=== PATIENT | male | born 1940 | race Caucasian/White ===

== ENCOUNTER 2016-08-20 20:25 | Inpatient (IN) | payer OTHER, SELFPAY ==
--- NOTE | ~2016-08-20 | DS ---
Discharge Summary [address] [id number] [place]. [address] NAME: MARISELA TATE SR : 42 STATUS : DIS IN PAT#: [id number] AGE: 76 ADM/REG DATE : 08/20/16 MR#: [id number] REPORT SERV DATE: 09/05/16 DICTATED BY: STANLEY MOORE DATE: 09/04/16 REPORT STATUS : Draft TRANSCRIBED BY: RYANNE DATE: 09/04/16 ADMISSION DATE: 08/20/2016 DISCHARGE DATE: 09/04/2016 FINAL DIAGNOSES: 1. Lumbar seroma. 2. Functional paraplegia. 3. Diabetes with peripheral neuropathy. 4. Hypertension. 5. Sacral decubitus ulcer, stage IV. 6. Chronic kidney disease, 3. 7. Dementia. 8. Morbid obesity. 9. Obstructive sleep apnea. HOSPITAL COURSE: Please refer to the H and P done by Dr. Porras, dated 08/21/2016 and the interim discharge summary done by Dr. Montaño on 09/02/2016. Since I took care of this patient, the patient's mental status is improving with increased dose of the Seroquel. The patient has become more cooperative and has not been combative. I discussed the case with , and she is happy with the patient's behavioral improvement. Meanwhile, the [facility] is [facility]. The agreed for the patient's transfer, so we will be transferring the patient there with the above diagnoses. The patient will be on the following medications: Norvasc 5 mg a day, folic acid 1 mg a day, hydrochlorothiazide 25 mg a day, Levemir 40 units at bedtime, subcu insulin protocol at level 2, Cozaar 100 mg twice a day, multivitamin once a day, Lopressor 12.5 mg twice a day, Nystatin powder to groin area, Seroquel 75 mg twice a day, Florastor 1 capsule twice a day, pravastatin 80 mg at bedtime, fatty acid 600 mg at bedtime, multivitamin once a day, aspirin 325 mg a day, Caltrate 600 mg a day, vitamin E 400 units a day, vitamin C 500 mg a day, and vitamin D 2000 units a day. The patient will follow up with the [facility] doctor. They would also manage the wound VAC. Follow up with Dr. Shaggy Dejesus after [facility] discharge. Followup with [facility], Dr. Corrales as scheduled. This has been explained to the patient in front of the , and they agreed and understood the plan. JIM/RYANNE Stanley Moore M.D. / [id number] CC: Discharge Summary [address] [address] NAME: MARISELA TATE SR : 42 STATUS : DIS IN PAT#: [id number] AGE: 76 ADM/REG DATE : 08/20/16 MR#: [id number] REPORT SERV DATE: 09/05/16 DICTATED BY: STANLEY MOORE DATE: 09/04/16 REPORT STATUS : Draft TRANSCRIBED BY: RYANNE DATE: 09/04/16 Lizbet Hernandez M.D.
--- NOTE | ~2016-08-20 | HP ---
History And Physical [address] [address] [facility] [place]. [address] NAME: MARISELA TATE SR : 42 STATUS : ADM IN [facility]#: [id number] AGE: 76 ADM/REG DATE : 08/20/16 MR#: [id number] REPORT SERV DATE: 08/21/16 DICTATED BY: JEYSON MONROE DATE: 08/20/16 REPORT STATUS : Draft TRANSCRIBED BY: RYANNE DATE: 08/20/16 DATE OF ADMISSION: 08/20/2016 REASON FOR TRANSFER: To be seen by Dr. Corrales for possible lumbar seroma versus abscess. HISTORY OF PRESENT ILLNESS: This is a 76 years old male with an extensive medical history, for which the patient is now status post L2 through S1 laminectomy and bilateral foraminotomies with decompression on 04/10/[address] Corrales from which, during that hospital course, the patient had some postop encephalopathy and later required discharge to rehab facility. He was readmitted to [facility], 06/05/2016, for altered mental status and fever, also treated for decubitus ulcer and found to have urinary tract infection and discharged again by different provider at the [facility] with continued wound care and treatment. The patient continued to have debility at that time; however, the patient was readmitted to [facility] on 08/06/2016, for which, at that time, the patient was treated for stage IV sacral decubitus ulcer by General Surgery and required a lap sigmoid colostomy with debridement of his decubitus ulcer and also required a revision of his diverting colostomy on 08/08/2016 at [facility], and was later [facility]. The patient, although remained at the facility for about 24 hours and was readmitted again back to [facility] for encephalopathy on 08/17/2016, admitted to the Hospitalist Service while at [facility], admitted by Dr. Sagastume at [facility] and treated for suspected urinary tract infection and toxic metabolic encephalopathy. During that admission, the patient had a CT of the brain without contrast that was reported to nondiagnostic. However, the patient did have an MRI of the lumbar spine with and without contrast with findings of some postop changes of laminectomy extending from L2 through L5 to S1, as well as a rim-enhancing complex fluid collection extending throughout the length of the laminectomy bed with consideration of seroma versus hematoma versus possible could not rule out abscess. According to the hospitalist, Dr. Spear, at [facility], he reported that Neurosurgery was consulted at [facility] and they recommended for the patient to be transferred back to [facility] to be seen by Dr. Corrales, who performed his initial surgery. Dr. Spear spoke to Dr. Corrales, who agreed to see the patient once the patient returned to [facility], but recommended for the patient to be admitted to the Hospitalist Service. According to the [facility] physician, Dr. Spear, the patient's encephalopathy has had improvement. However, the patient continued to have lower extremity weakness, noted to be approximately 2 or 3 out of 5 power. The patient now has been transferred back to [facility], continues to have a wound VAC for stage IV decubitus ulcer as well as PEG tube and colostomy. The patient has a complaint of some pain in his foot, but otherwise appears to be comfortable. He follows commands. Limited medical records were sent from [facility] with transfer, but apparently, the patient was on IV Rocephin per Dr. Spear at [facility]. REVIEW OF SYSTEMS: Please refer to HPI. PAST MEDICAL HISTORY: Type 2 diabetes, hypertension, peripheral neuropathy, hyperlipidemia, depression, stage 3 CKD, osteoarthritis, lumbar radiculopathy, obstructive sleep apnea, stage 4 decubitus ulcer, urinary tract infection, and metabolic encephalopathy. History And Physical [address] [address] NAME: MARISELA TATEN : 42 STATUS : ADM IN [facility]#: [id number] AGE: 76 ADM/REG DATE : 08/20/16 MR#: [id number] REPORT SERV DATE: 08/21/16 DICTATED BY: JEYSON MONROE DATE: 08/20/16 REPORT STATUS : Draft TRANSCRIBED BY: RYANNE DATE: 08/20/16 PAST SURGICAL HISTORY: L2 through S1 open laminectomy with bilateral foraminotomy with decompression on 04/10/[address] Corrales, ORIF of the right hand, PEG tube placement, diverting colostomy at [facility] with I and D of stage 4 decubitus ulcer. SOCIAL HISTORY: Quit tobacco abuse. No alcohol. No illicit drugs. FAMILY HISTORY: Unknown due to the patient's current status. ALLERGIES: SEROQUEL. HOME MEDICATIONS: No reported medications from [facility] sent with transfer. We will send for further records. However, the patient's home medications from and at [facility] on 08/17/2016 reviewed as well as the patient's discharge from 06/10/2016 from [facility] reviewed. Pharmacy to clarify. PHYSICAL EXAMINATION: VITAL SIGNS: Temp of 98.8, blood pressure 128/64 with a pulse of 74, respirations of 18, and saturating 95% on room air. GENERAL: The patient is alert and oriented x2, currently in no distress. Calm. Follows commands. HEENT: Pupils equal, round, and reactive to light. Extraocular muscles are intact. Anicteric sclerae. CARDIOVASCULAR: S1, S2. Regular rate and rhythm. No murmurs, rubs, or gallops. No JVD. RESPIRATORY: Clear to auscultation bilaterally. No wheezes or crackles. No signs of tachypnea. ABDOMEN: Positive bowel sounds. Soft, nontender with colostomy and PEG tube in place clean. EXTREMITIES: Bilateral 1+ edema. Warm. Some footdrop of the left foot. NEURO: 4/5 bilateral upper extremity strength and 3/5 of the right lower extremity and 2/5 of the left lower extremity. Cranial nerves 2 through 12 grossly intact. Wound VAC in place to stage 4 sacral decubitus. LABORATORY DATA: Currently pending. ASSESSMENT AND PLAN: 1. Lumbar seroma versus abscess. 2. Encephalopathy. 3. Functional paraplegia. 4. Stage IV sacral decubitus with wound VAC. 5. Type 2 diabetes. 6. Hypertension. We will await further recommendations and evaluation per Dr. Corrales. The patient was transferred to be seen by Dr. Corrales, his differential specialist. We will order for [facility] to push the patient's MRI images into PACS system to be reviewed by radiologist here at [facility]. Also, we will continue with some broad-spectrum antibiotics for now and also, we will consult General Surgery and Wound Care for his stage 4 decubitus ulcer management and also we will consult Nutrition. Apparently, the patient was on an ADA diet and also receiving tube feeds while at [facility]. Also, we will consult Physical Therapy and continue neuro History And Physical [address] [place]. [address] NAME: MARISELA TATE SR : 42 STATUS : ADM IN PAT#: [id number] AGE: 76 ADM/REG DATE : 08/20/16 MR#: [id number] REPORT SERV DATE: 08/21/16 DICTATED BY: JEYSON MONROE DATE: 08/20/16 REPORT STATUS : Draft TRANSCRIBED BY: RYANNE DATE: 08/20/16 checks every four hours. The patient will be admitted to Dr. Falk. Nurses/staff attempting to contact . Currently, no answer. Nurse left call-back number. [facility]/RYANNE Jeyson Monroe M.D. / [id number] CC: MD Shaggy Perez M.D.
--- NOTE | ~2016-08-20 | CN ---
Consultation Report [facility] [address] [place]. [address] NAME: MARISELA TATE SR : 42 STATUS : ADM IN [facility]#: [id number] AGE: 76 ADM/REG DATE : 08/20/16 MR#: [id number] REPORT SERV DATE: 08/22/16 DICTATED BY: BASHIR CORRALES DATE: 08/21/16 REPORT STATUS : Draft TRANSCRIBED BY: MODFina DATE: 08/21/16 INPATIENT CONSULTATION DATE OF CONSULTATION: 08/21/2016 REASON FOR CONSULTATION: Lumbar seroma, possible abscess. HISTORY OF PRESENT ILLNESS: The patient is a pleasant 76-year-old, that I saw and examined with his in the hospital room. He is status post L2-S1 surgery by me on 04/10/2016. He was initially doing well. He was seen in the office doing well until he had a fall at [facility], and since that time, he seems to have deteriorated significantly and had mental status change, decubitus ulcer, and sigmoid colostomy with debridement of the ulcer that was performed on 08/08/2016. I was contacted yesterday by the Hospitalist at [facility] and informed that the MRI of the spine had been done, and there was a fluid collection from L2 down to S1. At this point, there were no signs of spinal infection; however, given the previous surgery, it was recommended that he would be transferred to [facility] for ongoing management. He was transferred to the Hospitalist Service, and I have been consulted regarding this fluid collection. PHYSICAL EXAMINATION: GENERAL: The patient is showing signs of dementia, is unable to answer all questions well. He does have significant confusion. He is able to participate in the exam. SPINE: I did evaluate his previous surgical site that is well-healed. There were no signs of infection. There is a large stage IV decubitus ulcer caudal to the incision, but the incision itself remains intact with no erythema, fluctuance, or drainage. NEUROLOGIC: The patient is able to grossly move all extremities. He does have some significant weakness, but no areas of focal weakness. It seems to be diffuse throughout the lower extremities bilaterally. IMAGING: I have reviewed the MRI scan, and I agree that there is a fluid collection there. It is not possible to definitively say if it is a postoperative seroma, which is certainly a possibility versus infection. Given the benign looking nature of his incision, I am not inclined to recommend any additional surgery, especially since the said that with previous surgery and general anesthesia, significantly increased the severity of his dementia. As a result, I have consulted interventional Radiology for image-guided drainage of the lumbar fluid collection and to send that for culture analysis. As long as that comes back with no signs of infection or bacteria growth, then I would certainly try to avoid any additional surgery. [facility]/RYANNE Bashir Corrales, DO Consultation Report [address] [address] NAME: MARISELA TATE : 42 STATUS : ADM IN PAT#: [id number] AGE: 76 ADM/REG DATE : 08/20/16 MR#: [id number] REPORT SERV DATE: 08/22/16 DICTATED BY: BASHIR CORRALES DATE: 08/21/16 REPORT STATUS : Draft TRANSCRIBED BY: RYANNE DATE: 08/21/16 / [id number] CC: MD Shaggy Perez M.D.
--- NOTE | ~2016-08-20 | IDS ---
Interim Discharge Summary [facility] [address] [place]. [address] NAME: MARISELA TATE : 42 STATUS : ADM IN [facility]#: [id number] AGE: 76 ADM/REG DATE : 08/20/16 MR#: [id number] REPORT SERV DATE: 09/02/16 DICTATED BY: SAURABH PARDO DATE: 09/01/16 REPORT STATUS : Draft TRANSCRIBED BY: MODFina DATE: 09/01/16 ADMISSION DATE: 08/20/2016 DISCHARGE DATE: DATE OF INTERIM DISCHARGE: 09/01/2016. PROCEDURES DONE: 08/22/2016, fine-needle CT-guided aspiration of 10 mL of blood-tinged fluid from the paraspinal region. REASON FOR ADMISSION: Possible seroma versus abscess from lumbar. HISTORY OF HOSPITAL STAY: A 76-year-old white male with a past medical history of L2-S1 laminectomy and bilateral foraminotomies with decompression on 04/10/2016; diabetes type 2; hypertension; hyperlipidemia; chronic kidney disease, stage III; sacral decubitus, stage IV, on wound VAC; and metabolic encephalopathy presenting with possible lumbar seroma versus abscess. The patient was admitted secondary to ruling out lumbar seroma versus abscess. The patient has a change in mental status, here for further evaluation. CT of lumbar area showed the patient to have a seroma. Cultures have been negative. The patient was started on vancomycin and Zosyn for seven days despite culture negative results of the seroma. Nonetheless, the patient completed his antibiotics; however, the patient started having increasing mental status changes. Psychiatry was consulted. The patient has been started on Seroquel for better behavioral control. In addition, the patient's was initially wanting to take the home for discharge purposes. Unfortunately, the patient's comorbid condition makes it very difficult for a 76-year-old female to take care of the patient's needs. Eventually, the patient's relented and Case Management has been tasked to find a place for the patient. Unfortunately, with the patient's behavioral issues, it is very difficult to find an SNF facility that would take the patient. DIAGNOSIS UPON DISCHARGE: 1. Lumbar seroma. 2. Functional paraplegic. 3. Dementia. 4. Diabetes type 2. 5. Hypertension. 6. Morbid obesity. 7. Sacral decubitus, stage IV, with wound VAC. PLAN: The patient is medically much more improved from the day of presentation. However, the patient does present with mental status changes secondary to the patient's dementia. The patient's Seroquel has been titrated to 75 mg p.o. b.i.d., which has helped with the patient's behaviors. Currently, we are waiting on Case Management to find any SNF placement for the patient. FBJ/MODL Interim Discharge Summary [address] [place] [address] NAME: MARISELA TATE : 42 STATUS : ADM IN PAT#: [id number] AGE: 76 ADM/REG DATE : 08/20/16 MR#: [id number] REPORT SERV DATE: 09/02/16 DICTATED BY: SAURABH PARDO DATE: 09/01/16 REPORT STATUS : Draft TRANSCRIBED BY: RYANNE DATE: 09/01/16 Saurabh Pardo MD / [id number] CC: MD Shaggy Skaggs M.D.
[~2016-08-20 20:25] MED LIST: ALEVE220 MG PO; AMARYL1 MG PO; ASA5GR PO; ASAB PO; BALMEX11.3 % TOP; BISR PR; BIST PO; BYETTA SC; CALTRA600D PO; CATAPRES3 TOP; CIPIV4 IV; COZAAR100 MG PEG; DSS PEG; FOLIC ACID PO; FOLIC ACID400 MC1 PO; HUMALOGPEN SC; KLOR-CON M2020 MEQ PEG; LEVEMFLXPN SC; LEVEMIR SC; LOP25 PEG; LOP25 PO; LOPID6 PO; LOVENOX40 SC; MAGNESIUM PO; MAX25 PO; MULTIPLE VIT PO; MULTIVIT/MIN PO; NAMENXR14 PEG; NAMENXR28 PO; NEUR300 PO; NITROII20C TOP; NORCO1 TA1 PO; NORCO1 TAB PEG; NORV5 PEG; NOVOLOG SC; OMEGA 3 PO; PAX20 PO; PRAVACHOL80 MG PO; PRILOSEC40 MG PO; PRIN5 PO; PROTONI1 PEG; SEROQUEL25 PO; TRILIPIX135 MG PO; TYLENOL ARTH650 MG PO; VISINE0.05 % OPH; VITAMIN D1000 UNI1 PO; VITAMIN D31000 UNIT PO; VITC500 PEG; VITC500 PO; VITE PO; ZEASORB TOP
[2016-08-20 23:36] LABS: BASOPHILS 0.3 %; BASOPHILS ABSOLUTE 0.02 10/3/uL (0.0-0.16); EOSINOPHILS 2.6 %; EOSINOPHILS ABSOLUTE 0.18 10/3/uL (0.0-0.53); HEMATOCRIT 31.1 % (40.0-51.0); HEMOGLOBIN 9.7 g/dL (13.6-17.8); IMMATURE GRANULOCYTES 0.3 %; LYMPHOCYTES 20.2 %; MEAN CORPUS HGB CONC 31.2 g/dL (32.0-36.0); MEAN CORPUSCULAR HEMOGLOB 26.2 pg (26.0-34.0); MEAN CORPUSCULAR VOLUME 84.1 fL (80-100); MEAN PLATELET VOLUME 10.4 fL (9.2-13.0); MONOCYTES 6.5 %; MONOCYTES ABSOLUTE 0.45 10/3/uL (0.21-1.20); NEUTROPHILS 70.1 %; NEUTROPHILS ABSOLUTE 4.87 10/3/uL (2.02-8.40); PLATELET COUNT 258 10/3/uL (150-400); RBC DISTRIBUTION WIDTH 15.7 % (12.0-16.0); WHITE BLOOD CELLS 6.9 10/3/uL (4.5-10.5)
[2016-08-20 23:38] LABS: IMMATURE GRANULOCYTES ABSOLUTE 0.02 10/3/uL (0.0-0.11); MANUAL DIFF NO %
[2016-08-20 23:42] LABS: INTERNATIONAL NORMAL RATI 1.2 UNITS (-); PARTIAL THROMBO TIME 32.7 SEC (22.5-37.2); PROTIME (NOT ORD) 14.7 SEC (12.0-14.5)
[2016-08-20 23:55] LABS: A/G RATIO 0.6 (0.7-1.9); ALBUMIN 2.3 G/DL (3.5-5.0); ANISOCYTOSIS 1+ (5-10/OIF) (0-5/OIF); BAND NEUTROPHILS 1 %; BASOPHILS 1 %; BASOPHILS ABSOLUTE (CALC) 0.07 10/3/uL (0.0-0.16); CALCIUM, SERUM 8.6 MG/DL (8.5-10.4); CHLORIDE, SERUM 107 MMOL/L (96-112); CREATININE 0.81 MG/DL (0.70-1.30); EOSINOPHILS 2 %; EOSINOPHILS ABSOLUTE (CALC) 0.14 10/3/uL (0.0-0.53); GFR AFRICAN AMERICAN 101 ML/MIN (>=60); GFR NON AFRICAN AMERICAN 88 ML/MIN (>=60); GLOBULIN 3.8 G/DL (2.5-4.1); LYMPHOCYTES 16 %; MONOCYTES 4 %; MONOCYTES ABSOLUTE (CALC) 0.28 10/3/uL (0.21-1.20); NEUTROPHILS ABSOLUTE (CALC) 5.31 10/3/uL (2.02-8.40); PLATELET ESTIMATE ADQ (ADEQUATE); POTASSIUM, SERUM 3.6 MMOL/L (3.5-5.3); SEGMENTED NEUTROPHIL (0) 76 %; SGOT(AST) 17 U/L (5-40); SGPT(ALT) 26 U/L (5-65); SODIUM, SERUM 145 MMOL/L (135-148); TOTAL BILIRUBIN 0.7 MG/DL (0-1.2); TOTAL NUCLEATED CELLS 100; TOTAL PROTEIN 6.1 G/DL (6.0-8.5)
[2016-08-20 23:56] LABS: MACROCYTES 1+ (5-10/OIF) (0-5/OIF); MICROCYTES 1+ (5-10/OIF) (0-5/OIF)
[2016-08-20 23:57] LABS: ALKALINE PHOSPHATASE 74 U/L (45-117); BUN (BLOOD UREA NITROGEN) 14 MG/DL (6-23); CO2 (CARBON DIOXIDE) 31 MMOL/L (24-34); GLUCOSE, SERUM 110 MG/DL (60-99)
[2016-08-21] MEDS ORDERED: NEUR300 PO (13:19)
[2016-08-21] MEDS ORDERED: NORCO1 TA1 PO (13:20)
[2016-08-21] MEDS ORDERED: PRILOSEC40 MG PO (13:23)
[2016-08-21] MEDS ORDERED: PAX20 PO (13:23)
[2016-08-21] MEDS ORDERED: PRIN5 PO (13:23)
[2016-08-21] MEDS ORDERED: NAMENXR28 PO (13:23)
[2016-08-21] MEDS ORDERED: LOP25 PO (13:23)
[2016-08-21] MEDS ORDERED: MAX25 PO (13:24)
[2016-08-21] MEDS ORDERED: PRAVACHOL80 MG PO (13:24)
[2016-08-21] MEDS ORDERED: SEROQUEL25 PO (13:24)
[2016-08-21] MEDS ORDERED: LEVEMIR SC (13:24)
[2016-08-21] MEDS ORDERED: HUMALOG SC (13:24)
[2016-08-21] MEDS ORDERED: [UNRECOGNIZED DRUG - OTHER] PO (13:25)
[2016-08-21] MEDS ORDERED: CALTRAT600 PO (13:25)
[2016-08-21] MEDS ORDERED: MULTIVITAMI1 PO (13:25)
[2016-08-21] MEDS ORDERED: ASABAYER PO (13:25)
[2016-08-21] MEDS ORDERED: FOLIC PO (13:25)
[2016-08-21] MEDS ORDERED: MAGNESIUM PO (13:25)
[2016-08-21] MEDS ORDERED: VITAMIN D31000 UNIT PO (13:26)
[2016-08-21] MEDS ORDERED: VITE PO (13:26)
[2016-08-21] MEDS ORDERED: VITC500 PO (13:26)
[2016-08-22 07:24] LABS: BASOPHILS 0.5 %; BASOPHILS ABSOLUTE 0.03 10/3/uL (0.0-0.16); EOSINOPHILS 3.1 %; EOSINOPHILS ABSOLUTE 0.18 10/3/uL (0.0-0.53); HEMOGLOBIN 9.5 g/dL (13.6-17.8); IMMATURE GRANULOCYTES 0.3 %; IMMATURE GRANULOCYTES ABSOLUTE 0.02 10/3/uL (0.0-0.11); LYMPHOCYTES 21.7 %; LYMPHOCYTES ABSOLUTE 1.27 10/3/uL (0.67-4.30); MANUAL DIFF NO %; MEAN CORPUS HGB CONC 31.7 g/dL (32.0-36.0); MEAN PLATELET VOLUME 10.1 fL (9.2-13.0); MONOCYTES 6.5 %; MONOCYTES ABSOLUTE 0.38 10/3/uL (0.21-1.20); NEUTROPHILS 67.9 %; NEUTROPHILS ABSOLUTE 3.96 10/3/uL (2.02-8.40); PLATELET COUNT 238 10/3/uL (150-400); RBC DISTRIBUTION WIDTH 15.4 % (12.0-16.0); RED CELL COUNT 3.66 10/6/uL (4.7-6.1); WHITE BLOOD CELLS 5.8 10/3/uL (4.5-10.5)
[2016-08-22 07:39] LABS: A/G RATIO 0.6 (0.7-1.9); ALBUMIN 2.3 G/DL (3.5-5.0); ALKALINE PHOSPHATASE 72 U/L (45-117); CALCIUM, SERUM 8.5 MG/DL (8.5-10.4); CHLORIDE, SERUM 109 MMOL/L (96-112); CREATININE 0.71 MG/DL (0.70-1.30); GFR AFRICAN AMERICAN 107 ML/MIN (>=60); GFR NON AFRICAN AMERICAN 92 ML/MIN (>=60); GLOBULIN 3.8 G/DL (2.5-4.1); GLUCOSE, SERUM 90 MG/DL (60-99); POTASSIUM, SERUM 3.4 MMOL/L (3.5-5.3); SGOT(AST) 18 U/L (5-40); SGPT(ALT) 27 U/L (5-65); SODIUM, SERUM 146 MMOL/L (135-148); TOTAL BILIRUBIN 0.4 MG/DL (0-1.2); TOTAL PROTEIN 6.1 G/DL (6.0-8.5)
[2016-08-22 07:40] LABS: BUN (BLOOD UREA NITROGEN) 9 MG/DL (6-23); CO2 (CARBON DIOXIDE) 25 MMOL/L (24-34)
[2016-08-23 07:17] LABS: BASOPHILS 0.2 %; BASOPHILS ABSOLUTE 0.01 10/3/uL (0.0-0.16); EOSINOPHILS 3.1 %; EOSINOPHILS ABSOLUTE 0.17 10/3/uL (0.0-0.53); HEMATOCRIT 32.2 % (40.0-51.0); HEMOGLOBIN 9.9 g/dL (13.6-17.8); IMMATURE GRANULOCYTES 0.2 %; IMMATURE GRANULOCYTES ABSOLUTE 0.01 10/3/uL (0.0-0.11); LYMPHOCYTES 19.2 %; LYMPHOCYTES ABSOLUTE 1.04 10/3/uL (0.67-4.30); MANUAL DIFF NO %; MEAN CORPUS HGB CONC 30.7 g/dL (32.0-36.0); MEAN CORPUSCULAR HEMOGLOB 25.8 pg (26.0-34.0); MEAN CORPUSCULAR VOLUME 84.1 fL (80-100); MEAN PLATELET VOLUME 10.1 fL (9.2-13.0); MONOCYTES ABSOLUTE 0.27 10/3/uL (0.21-1.20); NEUTROPHILS 72.3 %; NEUTROPHILS ABSOLUTE 3.91 10/3/uL (2.02-8.40); PLATELET COUNT 235 10/3/uL (150-400); RBC DISTRIBUTION WIDTH 15.2 % (12.0-16.0); RED CELL COUNT 3.83 10/6/uL (4.7-6.1); WHITE BLOOD CELLS 5.4 10/3/uL (4.5-10.5)
[2016-08-23 07:37] LABS: A/G RATIO 0.6 (0.7-1.9); ALBUMIN 2.3 G/DL (3.5-5.0); ALKALINE PHOSPHATASE 72 U/L (45-117); BUN (BLOOD UREA NITROGEN) 9 MG/DL (6-23); CALCIUM, SERUM 8.6 MG/DL (8.5-10.4); CHLORIDE, SERUM 111 MMOL/L (96-112); CO2 (CARBON DIOXIDE) 25 MMOL/L (24-34); CREATININE 0.68 MG/DL (0.70-1.30); GFR AFRICAN AMERICAN 109 ML/MIN (>=60); GFR NON AFRICAN AMERICAN 94 ML/MIN (>=60); GLOBULIN 3.9 G/DL (2.5-4.1); POTASSIUM, SERUM 3.7 MMOL/L (3.5-5.3); SGOT(AST) 17 U/L (5-40); SGPT(ALT) 22 U/L (5-65); SODIUM, SERUM 146 MMOL/L (135-148); TOTAL BILIRUBIN 0.3 MG/DL (0-1.2); TOTAL PROTEIN 6.2 G/DL (6.0-8.5)
[2016-08-23 07:38] LABS: GLUCOSE, SERUM 111 MG/DL (60-99)
[2016-08-24 06:23] LABS: BASOPHILS 0.4 %; BASOPHILS ABSOLUTE 0.02 10/3/uL (0.0-0.16); EOSINOPHILS 3.5 %; EOSINOPHILS ABSOLUTE 0.19 10/3/uL (0.0-0.53); HEMATOCRIT 32.7 % (40.0-51.0); IMMATURE GRANULOCYTES 0.2 %; IMMATURE GRANULOCYTES ABSOLUTE 0.01 10/3/uL (0.0-0.11); LYMPHOCYTES 20.6 %; LYMPHOCYTES ABSOLUTE 1.12 10/3/uL (0.67-4.30); MEAN CORPUS HGB CONC 30.6 g/dL (32.0-36.0); MEAN CORPUSCULAR HEMOGLOB 25.8 pg (26.0-34.0); MEAN CORPUSCULAR VOLUME 84.3 fL (80-100); MEAN PLATELET VOLUME 9.9 fL (9.2-13.0); MONOCYTES 7.5 %; MONOCYTES ABSOLUTE 0.41 10/3/uL (0.21-1.20); NEUTROPHILS 67.8 %; NEUTROPHILS ABSOLUTE 3.69 10/3/uL (2.02-8.40); PLATELET COUNT 234 10/3/uL (150-400); RBC DISTRIBUTION WIDTH 15.1 % (12.0-16.0); RED CELL COUNT 3.88 10/6/uL (4.7-6.1); WHITE BLOOD CELLS 5.4 10/3/uL (4.5-10.5)
[2016-08-24 06:24] LABS: MANUAL DIFF NO %
[2016-08-24 06:37] LABS: A/G RATIO 0.6 (0.7-1.9); ALBUMIN 2.4 G/DL (3.5-5.0); ALKALINE PHOSPHATASE 71 U/L (45-117); BUN (BLOOD UREA NITROGEN) 8 MG/DL (6-23); CALCIUM, SERUM 8.5 MG/DL (8.5-10.4); CHLORIDE, SERUM 109 MMOL/L (96-112); CO2 (CARBON DIOXIDE) 27 MMOL/L (24-34); CREATININE 0.76 MG/DL (0.70-1.30); GFR AFRICAN AMERICAN 104 ML/MIN (>=60); GFR NON AFRICAN AMERICAN 90 ML/MIN (>=60); GLOBULIN 3.9 G/DL (2.5-4.1); POTASSIUM, SERUM 3.4 MMOL/L (3.5-5.3); SGOT(AST) 18 U/L (5-40); SGPT(ALT) 23 U/L (5-65); SODIUM, SERUM 145 MMOL/L (135-148); TOTAL BILIRUBIN 0.6 MG/DL (0-1.2); TOTAL PROTEIN 6.3 G/DL (6.0-8.5)
[2016-08-24 06:38] LABS: GLUCOSE, SERUM 160 MG/DL (60-99)
[2016-08-25 09:03] LABS: BASOPHILS 0.4 %; BASOPHILS ABSOLUTE 0.02 10/3/uL (0.0-0.16); EOSINOPHILS 3.4 %; EOSINOPHILS ABSOLUTE 0.19 10/3/uL (0.0-0.53); HEMATOCRIT 30.8 % (40.0-51.0); HEMOGLOBIN 9.7 g/dL (13.6-17.8); IMMATURE GRANULOCYTES 0.2 %; IMMATURE GRANULOCYTES ABSOLUTE 0.01 10/3/uL (0.0-0.11); LYMPHOCYTES 17.5 %; LYMPHOCYTES ABSOLUTE 0.97 10/3/uL (0.67-4.30); MANUAL DIFF NO %; MEAN CORPUS HGB CONC 31.5 g/dL (32.0-36.0); MEAN CORPUSCULAR HEMOGLOB 26.3 pg (26.0-34.0); MEAN CORPUSCULAR VOLUME 83.5 fL (80-100); MONOCYTES 5.9 %; MONOCYTES ABSOLUTE 0.33 10/3/uL (0.21-1.20); NEUTROPHILS 72.6 %; NEUTROPHILS ABSOLUTE 4.03 10/3/uL (2.02-8.40); PLATELET COUNT 211 10/3/uL (150-400); RED CELL COUNT 3.69 10/6/uL (4.7-6.1); WHITE BLOOD CELLS 5.6 10/3/uL (4.5-10.5)
[2016-08-25 09:19] LABS: A/G RATIO 0.6 (0.7-1.9); ALBUMIN 2.3 G/DL (3.5-5.0); ALKALINE PHOSPHATASE 63 U/L (45-117); BUN (BLOOD UREA NITROGEN) 8 MG/DL (6-23); CALCIUM, SERUM 8.7 MG/DL (8.5-10.4); CHLORIDE, SERUM 108 MMOL/L (96-112); CO2 (CARBON DIOXIDE) 25 MMOL/L (24-34); CREATININE 0.71 MG/DL (0.70-1.30); GFR AFRICAN AMERICAN 107 ML/MIN (>=60); GFR NON AFRICAN AMERICAN 92 ML/MIN (>=60); GLOBULIN 3.8 G/DL (2.5-4.1); GLUCOSE, SERUM 158 MG/DL (60-99); POTASSIUM, SERUM 3.3 MMOL/L (3.5-5.3); SGOT(AST) 17 U/L (5-40); SGPT(ALT) 28 U/L (5-65); SODIUM, SERUM 144 MMOL/L (135-148); TOTAL BILIRUBIN 0.7 MG/DL (0-1.2); TOTAL PROTEIN 6.1 G/DL (6.0-8.5)
[2016-08-26 05:02] LABS: BASOPHILS 0.3 %; BASOPHILS ABSOLUTE 0.02 10/3/uL (0.0-0.16); EOSINOPHILS 4.1 %; EOSINOPHILS ABSOLUTE 0.26 10/3/uL (0.0-0.53); HEMATOCRIT 32.8 % (40.0-51.0); HEMOGLOBIN 10.1 g/dL (13.6-17.8); IMMATURE GRANULOCYTES 0.3 %; IMMATURE GRANULOCYTES ABSOLUTE 0.02 10/3/uL (0.0-0.11); LYMPHOCYTES 19.1 %; LYMPHOCYTES ABSOLUTE 1.22 10/3/uL (0.67-4.30); MANUAL DIFF NO %; MEAN CORPUS HGB CONC 30.8 g/dL (32.0-36.0); MEAN CORPUSCULAR HEMOGLOB 25.9 pg (26.0-34.0); MEAN CORPUSCULAR VOLUME 84.1 fL (80-100); MEAN PLATELET VOLUME 10.3 fL (9.2-13.0); MONOCYTES 5.2 %; MONOCYTES ABSOLUTE 0.33 10/3/uL (0.21-1.20); NEUTROPHILS ABSOLUTE 4.54 10/3/uL (2.02-8.40); PLATELET COUNT 217 10/3/uL (150-400); RBC DISTRIBUTION WIDTH 15.2 % (12.0-16.0); WHITE BLOOD CELLS 6.4 10/3/uL (4.5-10.5)
[2016-08-26 05:21] LABS: A/G RATIO 0.7 (0.7-1.9); ALBUMIN 2.3 G/DL (3.5-5.0); BUN (BLOOD UREA NITROGEN) 11 MG/DL (6-23); CALCIUM, SERUM 8.8 MG/DL (8.5-10.4); CHLORIDE, SERUM 109 MMOL/L (96-112); CO2 (CARBON DIOXIDE) 26 MMOL/L (24-34); CREATININE 0.69 MG/DL (0.70-1.30); GFR AFRICAN AMERICAN 108 ML/MIN (>=60); GFR NON AFRICAN AMERICAN 94 ML/MIN (>=60); GLOBULIN 3.2 G/DL (2.5-4.1); GLUCOSE, SERUM 184 MG/DL (60-99); POTASSIUM, SERUM 3.5 MMOL/L (3.5-5.3); SGOT(AST) 23 U/L (5-40); SGPT(ALT) 27 U/L (5-65); SODIUM, SERUM 146 MMOL/L (135-148); TOTAL BILIRUBIN 0.4 MG/DL (0-1.2); TOTAL PROTEIN 5.5 G/DL (6.0-8.5)
[2016-08-26 05:22] LABS: ALKALINE PHOSPHATASE 48 U/L (45-117)
[2016-08-27 05:19] LABS: A/G RATIO 0.6 (0.7-1.9); ALBUMIN 2.4 G/DL (3.5-5.0); ALKALINE PHOSPHATASE 56 U/L (45-117); BUN (BLOOD UREA NITROGEN) 15 MG/DL (6-23); CALCIUM, SERUM 8.9 MG/DL (8.5-10.4); CHLORIDE, SERUM 107 MMOL/L (96-112); CO2 (CARBON DIOXIDE) 26 MMOL/L (24-34); CREATININE 0.71 MG/DL (0.70-1.30); GFR AFRICAN AMERICAN 107 ML/MIN (>=60); GFR NON AFRICAN AMERICAN 92 ML/MIN (>=60); GLOBULIN 3.7 G/DL (2.5-4.1); GLUCOSE, SERUM 179 MG/DL (60-99); PHOSPHORUS, SERUM 3.2 MG/DL (2.5-4.5); POTASSIUM, SERUM 3.3 MMOL/L (3.5-5.3); SGOT(AST) 22 U/L (5-40); SGPT(ALT) 31 U/L (5-65); SODIUM, SERUM 143 MMOL/L (135-148); TOTAL BILIRUBIN 0.2 MG/DL (0-1.2); TOTAL PROTEIN 6.1 G/DL (6.0-8.5)
[2016-08-27 05:20] LABS: BASOPHILS 0.3 %; BASOPHILS ABSOLUTE 0.02 10/3/uL (0.0-0.16); EOSINOPHILS 3.2 %; EOSINOPHILS ABSOLUTE 0.21 10/3/uL (0.0-0.53); HEMOGLOBIN 10.1 g/dL (13.6-17.8); IMMATURE GRANULOCYTES 0.5 %; IMMATURE GRANULOCYTES ABSOLUTE 0.03 10/3/uL (0.0-0.11); LYMPHOCYTES 20.8 %; LYMPHOCYTES ABSOLUTE 1.35 10/3/uL (0.67-4.30); MANUAL DIFF NO %; MEAN CORPUS HGB CONC 30.6 g/dL (32.0-36.0); MEAN CORPUSCULAR HEMOGLOB 25.8 pg (26.0-34.0); MEAN CORPUSCULAR VOLUME 84.4 fL (80-100); MEAN PLATELET VOLUME 10.7 fL (9.2-13.0); MONOCYTES 5.7 %; MONOCYTES ABSOLUTE 0.37 10/3/uL (0.21-1.20); NEUTROPHILS 69.5 %; PLATELET COUNT 197 10/3/uL (150-400); RED CELL COUNT 3.91 10/6/uL (4.7-6.1); WHITE BLOOD CELLS 6.5 10/3/uL (4.5-10.5)
[2016-08-28 05:24] LABS: BASOPHILS 0.3 %; BASOPHILS ABSOLUTE 0.02 10/3/uL (0.0-0.16); EOSINOPHILS 3.9 %; EOSINOPHILS ABSOLUTE 0.23 10/3/uL (0.0-0.53); HEMATOCRIT 32.7 % (40.0-51.0); HEMOGLOBIN 9.9 g/dL (13.6-17.8); IMMATURE GRANULOCYTES 0.5 %; IMMATURE GRANULOCYTES ABSOLUTE 0.03 10/3/uL (0.0-0.11); LYMPHOCYTES 24.7 %; LYMPHOCYTES ABSOLUTE 1.45 10/3/uL (0.67-4.30); MEAN CORPUS HGB CONC 30.3 g/dL (32.0-36.0); MEAN CORPUSCULAR HEMOGLOB 25.8 pg (26.0-34.0); MEAN CORPUSCULAR VOLUME 85.2 fL (80-100); MEAN PLATELET VOLUME 11.2 fL (9.2-13.0); MONOCYTES 7.7 %; MONOCYTES ABSOLUTE 0.45 10/3/uL (0.21-1.20); NEUTROPHILS 62.9 %; PLATELET COUNT 209 10/3/uL (150-400); RBC DISTRIBUTION WIDTH 15.3 % (12.0-16.0); RED CELL COUNT 3.84 10/6/uL (4.7-6.1); WHITE BLOOD CELLS 5.9 10/3/uL (4.5-10.5)
[2016-08-28 05:28] LABS: MANUAL DIFF NO %
[2016-08-28 05:29] LABS: A/G RATIO 0.7 (0.7-1.9); ALBUMIN 2.6 G/DL (3.5-5.0); ALKALINE PHOSPHATASE 60 U/L (45-117); BUN (BLOOD UREA NITROGEN) 16 MG/DL (6-23); CALCIUM, SERUM 9.4 MG/DL (8.5-10.4); CHLORIDE, SERUM 107 MMOL/L (96-112); CO2 (CARBON DIOXIDE) 29 MMOL/L (24-34); CREATININE 0.74 MG/DL (0.70-1.30); GFR AFRICAN AMERICAN 105 ML/MIN (>=60); GFR NON AFRICAN AMERICAN 91 ML/MIN (>=60); GLOBULIN 3.8 G/DL (2.5-4.1); PHOSPHORUS, SERUM 3.6 MG/DL (2.5-4.5); POTASSIUM, SERUM 3.8 MMOL/L (3.5-5.3); SGOT(AST) 23 U/L (5-40); SGPT(ALT) 38 U/L (5-65); SODIUM, SERUM 146 MMOL/L (135-148); TOTAL BILIRUBIN 0.5 MG/DL (0-1.2); TOTAL PROTEIN 6.4 G/DL (6.0-8.5)
[2016-08-28 05:31] LABS: GLUCOSE, SERUM 125 MG/DL (60-99)
[2016-09-02 06:47] LABS: BASOPHILS 0.2 %; BASOPHILS ABSOLUTE 0.01 10/3/uL (0.0-0.16); EOSINOPHILS 3.1 %; EOSINOPHILS ABSOLUTE 0.19 10/3/uL (0.0-0.53); HEMATOCRIT 34.4 % (40.0-51.0); HEMOGLOBIN 10.5 g/dL (13.6-17.8); IMMATURE GRANULOCYTES 0.6 %; IMMATURE GRANULOCYTES ABSOLUTE 0.04 10/3/uL (0.0-0.11); LYMPHOCYTES 21.6 %; LYMPHOCYTES ABSOLUTE 1.34 10/3/uL (0.67-4.30); MANUAL DIFF NO %; MEAN CORPUS HGB CONC 30.5 g/dL (32.0-36.0); MEAN CORPUSCULAR HEMOGLOB 25.7 pg (26.0-34.0); MEAN CORPUSCULAR VOLUME 84.3 fL (80-100); MEAN PLATELET VOLUME 11.2 fL (9.2-13.0); MONOCYTES 6.5 %; NEUTROPHILS ABSOLUTE 4.21 10/3/uL (2.02-8.40); PLATELET COUNT 185 10/3/uL (150-400); RBC DISTRIBUTION WIDTH 14.9 % (12.0-16.0); RED CELL COUNT 4.08 10/6/uL (4.7-6.1); WHITE BLOOD CELLS 6.2 10/3/uL (4.5-10.5)
[2016-09-02 07:00] LABS: A/G RATIO 0.7 (0.7-1.9); ALBUMIN 2.7 G/DL (3.5-5.0); ALKALINE PHOSPHATASE 66 U/L (45-117); CALCIUM, SERUM 9.9 MG/DL (8.5-10.4); CHLORIDE, SERUM 103 MMOL/L (96-112); CO2 (CARBON DIOXIDE) 31 MMOL/L (24-34); CREATININE 0.86 MG/DL (0.70-1.30); GFR AFRICAN AMERICAN 99 ML/MIN (>=60); GFR NON AFRICAN AMERICAN 85 ML/MIN (>=60); GLOBULIN 4.1 G/DL (2.5-4.1); PHOSPHORUS, SERUM 3.8 MG/DL (2.5-4.5); POTASSIUM, SERUM 3.6 MMOL/L (3.5-5.3); SGOT(AST) 21 U/L (5-40); SGPT(ALT) 47 U/L (5-65); SODIUM, SERUM 141 MMOL/L (135-148); TOTAL BILIRUBIN 0.2 MG/DL (0-1.2); TOTAL PROTEIN 6.8 G/DL (6.0-8.5)
[2016-09-02 07:02] LABS: BUN (BLOOD UREA NITROGEN) 39 MG/DL (6-23); GLUCOSE, SERUM 170 MG/DL (60-99)
[2016-09-03 06:36] LABS: CALCIUM, SERUM 9.5 MG/DL (8.5-10.4); CHLORIDE, SERUM 103 MMOL/L (96-112); CREATININE 0.87 MG/DL (0.70-1.30); GFR AFRICAN AMERICAN 99 ML/MIN (>=60); GFR NON AFRICAN AMERICAN 85 ML/MIN (>=60); GLUCOSE, SERUM 182 MG/DL (60-99); POTASSIUM, SERUM 3.8 MMOL/L (3.5-5.3); SODIUM, SERUM 141 MMOL/L (135-148)
[2016-09-03 06:37] LABS: BUN (BLOOD UREA NITROGEN) 46 MG/DL (6-23); CO2 (CARBON DIOXIDE) 26 MMOL/L (24-34)
[2016-09-04 06:13] LABS: BUN (BLOOD UREA NITROGEN) 41 MG/DL (6-23); CHLORIDE, SERUM 104 MMOL/L (96-112); CO2 (CARBON DIOXIDE) 28 MMOL/L (24-34); CREATININE 0.78 MG/DL (0.70-1.30); GFR AFRICAN AMERICAN 103 ML/MIN (>=60); GFR NON AFRICAN AMERICAN 89 ML/MIN (>=60); GLUCOSE, SERUM 184 MG/DL (60-99); POTASSIUM, SERUM 3.6 MMOL/L (3.5-5.3); SODIUM, SERUM 143 MMOL/L (135-148)
== END 2016-09-04 16:12 | DRG 919 ==
LOC: 2SO 20:25
PROVIDERS: Hospitalist; Internal Medicine; Radiology Vascular & Interventional Radiology
PROC: 0J973ZX Drainage of Back Subcutaneous Tissue and Fascia, Percutaneous Approach, Diagnostic (ICD-10-PCS; principal; 2016-08-22)
DX: L76.34 Postprocedural seroma of skin and subcutaneous tissue following other procedure (principal); G93.41 Metabolic encephalopathy; L89.154 Pressure ulcer of sacral region, stage 4; E11.22 Type 2 diabetes mellitus with diabetic chronic kidney disease; E11.42 Type 2 diabetes mellitus with diabetic polyneuropathy; M46.26 Osteomyelitis of vertebra, lumbar region; N18.3 Chronic kidney disease, stage 3 (moderate); E66.01 Morbid (severe) obesity due to excess calories; F03.90 Unspecified dementia, unspecified severity, without behavioral disturbance, psychotic disturbance, mood disturbance, and anxiety; Z51.5 Encounter for palliative care; F44.4 Conversion disorder with motor symptom or deficit; I12.9 Hypertensive chronic kidney disease with stage 1 through stage 4 chronic kidney disease, or unspecified chronic kidney disease; G47.33 Obstructive sleep apnea (adult) (pediatric); E78.5 Hyperlipidemia, unspecified; F32.9 Major depressive disorder, single episode, unspecified; M19.90 Unspecified osteoarthritis, unspecified site; Y83.9 Surgical procedure, unspecified as the cause of abnormal reaction of the patient, or of later complication, without mention of misadventure at the time of the procedure; Y83.8 Other surgical procedures as the cause of abnormal reaction of the patient, or of later complication, without mention of misadventure at the time of the procedure; Y79.3 Surgical instruments, materials and orthopedic devices (including sutures) associated with adverse incidents; Z68.39 Body mass index [BMI] 39.0-39.9, adult; Z87.891 Personal history of nicotine dependence; Y92.009 Unspecified place in unspecified non-institutional (private) residence as the place of occurrence of the external cause; Z93.3 Colostomy status; Z93.1 Gastrostomy status
CPT/HCPCS: 10022; 71010; 80048; 80053; 80202; 82962; 83036; 83735; 84100; 84132; 85025; 85610; 85730; 87040; 87070; 87075; 87205; 97162-GP; A9270-GY; J0360; J2250; J2543; J3010; J3370

== ENCOUNTER 2016-09-29 11:11 | Inpatient (IN) | payer OTHER ==
--- NOTE | ~2016-09-29 | HP ---
History And Physical [id number] [place]. [address] NAME: MARISELA TATE SR : 42 STATUS : ADM IN [facility]#: [id number] AGE: 76 ADM/REG DATE : 09/29/16 MR#: [id number] REPORT SERV DATE: 09/29/16 DICTATED BY: CARON TELLO DATE: 09/29/16 REPORT STATUS : Draft TRANSCRIBED BY: RYANNE DATE: 09/29/16 DATE OF ADMISSION: 09/29/2016 CHIEF COMPLAINT: Altered mental status, acute renal failure, hypotension and suspected sepsis. HISTORY OF PRESENT ILLNESS: The patient is a 76-year-old male. He has an extensive medical history, basically centering around a nonhealing decubitus ulcer, history of progressive and severe dementia with combative behavior, and I believe history of previous back surgery. He presents today from the [facility]. Apparently, per the history from his , approximately four days ago, she believes his feeding tube was pulled out by himself inadvertently. She states that she noted it and brought it to the facility's attention. She believes it may have been out as long as a week, for at least the past four or five days. She states that he has been unable to take any oral intake. She was afraid he was getting dehydrated. He became completely lethargic and confused. She was also told by the physician there that his decubitus was infected again and that he had a urinary tract infection, although she does not know what treatment was rendered. When he became increasingly lethargic, sleepy, confused, he was obviously getting sicker, so he had to be transported to [facility]. Here, he is noted to be in acute renal failure with a creatinine of 6, hypotensive with a white count of 24,000. I had a long discussion with his and POA. He has a previous advanced directive on the chart. She currently understands his grave illness and wishes to abide by that DNR. She is not interested in dialysis, pressors, ICU transfer. She would however like IV fluids, aggressive antibiotics, and she is agreeable to talking to Hospice at this point and requests that also the patient is being admitted for further care and treatment. PAST MEDICAL HISTORY: In addition to the previous spinal surgery, he has had increasing combative dementia. He has had urinary tract infections, wound infections. He has diabetes and chronic kidney disease apparently also. PAST SURGICAL HISTORY: He has had a previous laminectomy, PEG tube placement, right hand surgery, colostomy, and a previous debridement of a decubitus ulcer. CURRENT MEDICATIONS: Norvasc 5, vitamin C 500, aspirin 325, calcium 600, D3 4000, folic acid 1, hydrochlorothiazide 25, Lortab 5/325 q.6 p.r.n., NovoLog sliding scale, Levemir 40 at bedtime, Cozaar 100 b.i.d. Lopressor 12.5 b.i.d., multivitamin, Mycostatin powder, Pravachol 80, Seroquel 75 b.i.d., Seroquel 50 at 2 a.m., Florastor, vitamin E 400, Bactrim DS b.i.d. started on the 7th, and Super [place] Plus. ALLERGIES: TO ANESTHESIA. FAMILY HISTORY: Noncontributory. SOCIAL HISTORY: Nondrinker, nonsmoker. REVIEW OF SYSTEMS: The patient is not able to give. in addition to the history above, has noticed a rash History And Physical [address] [address] NAME: MARISELA TATE SR : 42 STATUS : ADM IN [facility]#: [id number] AGE: 76 ADM/REG DATE : 09/29/16 MR#: [id number] REPORT SERV DATE: 09/29/16 DICTATED BY: CARON TELLO DATE: 09/29/16 REPORT STATUS : Draft TRANSCRIBED BY: MODL DATE: 09/29/16 appearing on his right flank fairly extensively. Otherwise, review of systems best can be determined as covered in HPI. PHYSICAL EXAMINATION: VITAL SIGNS: BP 96/49, temperature 98.5, pulse 70, respirations 16, sat 98%. GENERAL: He is awake. He is mumbling. He does not follow commands, but seems to acknowledge presence. HEENT: Normocephalic, atraumatic. NECK: Supple. HEART: Regular rate and rhythm. LUNGS: Clear to auscultation anteriorly. ABDOMEN: He has a colostomy. The feeding tube site has a gauze, but there does not seem to be any surrounding erythema. He has bowel sounds. He does not seem to react with abdominal tenderness. EXTREMITIES: He has trace edema. LABORATORY DATA: Sodium 142, potassium 4.8, chloride 102, CO2 of 26, BUN and creatinine of 157 and 6.39 with a glucose of 175, albumin is 1.6, CPK is 196. Troponins less than 0.02. Ammonia is 60. Lactate is pending. White count is 24.8, H and H are 8.8 and 28.0 with the platelets of 290. Urinalysis is positive. Cultures are currently pending. Chest x-ray was without acute infiltrate, but cardiomegaly was noted. Shallow inspiration was noted. CT of brain, no acute intracranial abnormality identified. CT of abdomen and pelvis is currently pending. ASSESSMENT: Hypotension, acute renal insufficiency, leukocytosis, worsened altered mental state. Differential would be infection from his decubitus, urinary or less likely intraabdominal. PLAN: 1. The patient has been admitted. 2. Again as was discussed in HPI, aggressive measures were discussed and declined with his . We will be admit him to the floor. We will continue high-flow IV fluids, broad- spectrum antibiotics. Await the results of his cultures, lactate and CT findings. Hold him n.p.o. We will renew his home medications as appropriate, certainly holding his antihypertensive and CLAUDY inhibitor. Overall prognosis is very guarded. LISA/RYANNE Caron Tello M.D. / [id number] CC: Caron Tello M.D. History And Physical [address] [address] NAME: MARISELA TATE : 42 STATUS : ADM IN [facility]#: [id number] AGE: 76 ADM/REG DATE : 09/29/16 MR#: [id number] REPORT SERV DATE: 09/29/16 DICTATED BY: CARON TELLO DATE: 09/29/16 REPORT STATUS : Draft TRANSCRIBED BY: MODL DATE: 09/29/16 Shaggy Dejesus M.D.
--- NOTE | ~2016-09-29 | DS ---
Discharge Summary [place] [id number] [facility] [place] [address] NAME: MARISELA TATE SR : 42 STATUS : DIS IN PAT#: [id number] AGE: 76 ADM/REG DATE : 09/29/16 MR#: [id number] REPORT SERV DATE: 10/03/16 DICTATED BY: SAURABH PARDO DATE: 10/02/16 REPORT STATUS : Draft TRANSCRIBED BY: MODiFna DATE: 10/02/16 ADMISSION DATE: 09/29/2016 DISCHARGE DATE: 10/02/2016 PROCEDURES DONE: 1. 09/29/2016 CT of the head: No acute intracranial abnormality identified at this time. Stable [id number] cortical volume loss with stable ventriculomegaly, likely related to patient's volume loss. 2. 09/29/2016 chest x-ray: Stable cardiomegaly. Shallow inspiration. Otherwise, negative AP portable chest. 3. 09/29/2016 CT abdomen and pelvis without contrast: Stranding surrounding the renal collecting system and ureters bilaterally concerning for possible pyelonephritis in the appropriate clinical setting, suggests correlation with urinalysis. There is a Bustos catheter in place with balloon appearing low-lying likely within the upper prostatic urethra. Left lower quadrant diverting colostomy as described. No bowel obstruction pattern demonstrated. Colonic diverticulosis without CT evidence of acute diverticulitis. 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 Trace right pleural fluid with atelectatic changes at the lung bases. Small hiatal hernia. Small amount of gas in the tract of the PEG tube explant site. No surrounding collection demonstrated. 4. 09/30/2016 chest x-ray: Mild cardiomegaly. No acute process. No change. 5. 10/01/2016 percutaneous gastrostomy tube placement: Successful fluoroscopic replacement of a new 20-Slovenian gastrostomy tube. Retention balloon was inflated with approximately 20 mL of saline contrast mixture. This procedure required 2 minutes of fluoroscopy. REASON FOR ADMISSION: Altered mental status. HISTORY OF HOSPITAL STAY: A 76-year-old white male with past medical history of dementia, diabetes type 2, chronic kidney disease stage 3, status post PEG, sacral decubitus stage IV, functional paraplegia, dementia, morbid obesity, presenting with altered mental status. [facility]. Apparently, the patient was transferred from the [facility] because of the patient pulling out his PEG tube inadvertently and in addition, the patient has not been able to take any oral intake. was getting concerned that the patient was getting dehydrated and coupled with the increasing change in mental status, the patient was then sent to [facility] for further evaluation. The patient was then admitted for the change in mental status, where the patient was found to have a UTI secondary to Proteus mirabilis with ESBL. In addition, the patient was also bacteremic with Strep pyogenes. The patient was started on Zosyn. Unfortunately, the patient has very severe comorbid conditions that was very difficult to cure. The patient has a significant sacral decubitus stage IV. The patient does have a functional paraplegia. In addition, the patient has increasing dementia that has been progressively worsening since last year. Discussion regarding hospice care was made with the patient's . The patient's has known all along that the patient has had a slow decline. His medical condition has been worsening to the point that medical treatment will only temporarily fix the patient's bacteremia, UTI, as well as his pulled PEG for nutrition. The patient's clearly understands that this is Discharge Summary [address] [address] NAME: MARISELA TATE SR : 42 STATUS : DIS IN [facility]#: [id number] AGE: 76 ADM/REG DATE : 09/29/16 MR#: [id number] REPORT SERV DATE: 10/03/16 DICTATED BY: SAURABH PARDO DATE: 10/02/16 REPORT STATUS : Draft TRANSCRIBED BY: MODFina DATE: 10/02/16 only a temporary measure until the whole issue rises again. Therefore, with great difficulty, the patient's has decided to go with [facility]. DISPOSITION: The patient is feeling fine, no complaint. ACTIVITIES: As tolerated. DIET: Via PEG. MEDICATION UPON DISCHARGE: Medications will be administered by [facility] as needed. DIAGNOSES UPON DISCHARGE: 1. Encephalopathy secondary to urinary tract infection, dementia, bacteremia. 2. Urinary tract infection secondary to Proteus mirabilis extended spectrum beta- lactamase. 3. Bacteremia secondary to Strep pyogenes. 4. Acute kidney injury secondary to chronic kidney disease, stage 3, due to bacteremia and urinary tract infection as well as a pulled percutaneous endoscopic gastrostomy. 5. Replacement of a pulled percutaneous endoscopic gastrostomy. 6. Dementia. 7. Sacral decubitus. 8. Type 2 diabetes, morbid obesity, hypertension. FBRosalva/MODL Saurabh Pardo MD / [id number] CC: MD Shaggy Skaggs M.D.
[2016-09-29 10:55] LABS: BASOPHILS 0.1 %; BASOPHILS ABSOLUTE 0.03 10/3/uL (0.0-0.16); EOSINOPHILS 0.6 %; EOSINOPHILS ABSOLUTE 0.14 10/3/uL (0.0-0.53); HEMOGLOBIN 8.8 g/dL (13.6-17.8); IMMATURE GRANULOCYTES 0.6 %; IMMATURE GRANULOCYTES ABSOLUTE 0.15 10/3/uL (0.0-0.11); LYMPHOCYTES ABSOLUTE 1.02 10/3/uL (0.67-4.30); MANUAL DIFF NO %; MEAN CORPUS HGB CONC 31.4 g/dL (32.0-36.0); MEAN CORPUSCULAR HEMOGLOB 24.7 pg (26.0-34.0); MEAN CORPUSCULAR VOLUME 78.7 fL (80-100); MEAN PLATELET VOLUME 10.7 fL (9.2-13.0); MONOCYTES 2.2 %; MONOCYTES ABSOLUTE 0.55 10/3/uL (0.21-1.20); NEUTROPHILS 92.5 %; PLATELET COUNT 290 10/3/uL (150-400); RBC DISTRIBUTION WIDTH 15.7 % (12.0-16.0); RED CELL COUNT 3.56 10/6/uL (4.7-6.1); WHITE BLOOD CELLS 24.8 10/3/uL (4.5-10.5)
[2016-09-29 11:03] LABS: INTERNATIONAL NORMAL RATI 1.4 UNITS (-); PARTIAL THROMBO TIME 33.1 SEC (22.5-37.2); PROTIME (NOT ORD) 17.2 SEC (12.0-14.5)
[~2016-09-29 11:11] MED LIST changes: +ASABAYER PO; +CALTRAT600 PO; +FOLIC PO; +HUMALOG SC; +MULTIVITAMI1 PO; +[UNRECOGNIZED DRUG - OTHER] PO
[2016-09-29 11:13] LABS: CALCIUM, SERUM 9.6 MG/DL (8.5-10.4); CHLORIDE, SERUM 102 MMOL/L (96-112); CO2 (CARBON DIOXIDE) 26 MMOL/L (24-34); GLUCOSE, SERUM 175 MG/DL (60-99); POTASSIUM, SERUM 4.8 MMOL/L (3.5-5.3); SGOT(AST) 76 U/L (5-40); SGPT(ALT) 94 U/L (5-65); SODIUM, SERUM 142 MMOL/L (135-148); TOTAL BILIRUBIN 0.4 MG/DL (0-1.2); TOTAL PROTEIN 7.6 G/DL (6.0-8.5); TROPONIN I <0.02 NG/ML (<0.05)
[2016-09-29 11:14] LABS: A/G RATIO 0.3 (0.7-1.9); ALBUMIN 1.6 G/DL (3.5-5.0); ALKALINE PHOSPHATASE 96 U/L (45-117); CPK 196 U/L (0-200); CREATININE 6.39 MG/DL (0.70-1.30); GFR AFRICAN AMERICAN 9 ML/MIN (>=60); GFR NON AFRICAN AMERICAN 8 ML/MIN (>=60)
[2016-09-29 11:23] LABS: BUN (BLOOD UREA NITROGEN) 157 MG/DL (6-23)
[2016-09-29 11:29] LABS: BAND NEUTROPHILS 4 %; ER DIFF TAT 0 Hrs 38 Mins; LYMPHOCYTES 1 %; LYMPHOCYTES ABSOLUTE (CALC) 0.25 10/3/uL (0.67-4.30); MONOCYTES 1 %; MONOCYTES ABSOLUTE (CALC) 0.25 10/3/uL (0.21-1.20); PLATELET ESTIMATE ADQ (ADEQUATE); RBC MORPHOLOGY NORM (NORMAL); SEGMENTED NEUTROPHIL (0) 94 %; TOTAL NUCLEATED CELLS 100
[2016-09-29 11:30] LABS: TOXIC GRANULATION SLT; VACUOLATED NEUTROPHILES OCC
[2016-09-29 11:36] LABS: ASCORBIC ACID (UR NOT ORDER) NEG (NEG); BILIRUBIN, URINE NEGATIVE (NEG); ER URINALYSIS TAT 0 Hrs 09 Mins; KETONE, URINE NEGATIVE (NEG); LEUKOCYTE ESTERASE(NOT OR LARGE (NEG); NITRITE (URINE) NEG (NEG); WBC (NOT ORDERED) (RFLEX) > 182 (0-5)
[2016-09-29] MEDS ORDERED: NORV5 PO (12:26)
[2016-09-29] MEDS ORDERED: HYDROCHLOROT25 MG PO (12:27)
[2016-09-29] MEDS ORDERED: COZAAR100 MG PO (12:34)
[2016-09-29] MEDS ORDERED: FLORASTOR250 MG PO (12:34)
[2016-09-29] MEDS ORDERED: BACDS PO (12:37)
[2016-09-29] MEDS ORDERED: SEROQUEL50 MG PO (12:37)
[2016-09-29] MEDS ORDERED: NOVOLOG SC (12:39)
[2016-09-29] MEDS ORDERED: NORCO1 TA1 PO (12:39)
[2016-09-29] MEDS ORDERED: NYSTATPOW TOP (12:40)
[2016-09-29 15:37] LABS: PROCALCITONIN 5.07 ng/mL (<0.5)
[2016-09-30 06:39] LABS: A/G RATIO 0.2 (0.7-1.9); ALBUMIN 1.4 G/DL (3.5-5.0); ALKALINE PHOSPHATASE 93 U/L (45-117); CHLORIDE, SERUM 114 MMOL/L (96-112); GLOBULIN 5.7 G/DL (2.5-4.1); GLUCOSE, SERUM 146 MG/DL (60-99); POTASSIUM, SERUM 4.3 MMOL/L (3.5-5.3); SGOT(AST) 55 U/L (5-40); SGPT(ALT) 73 U/L (5-65); SODIUM, SERUM 147 MMOL/L (135-148); TOTAL BILIRUBIN 0.3 MG/DL (0-1.2); TOTAL PROTEIN 7.1 G/DL (6.0-8.5)
[2016-09-30 06:40] LABS: BASOPHILS 0.1 %; BASOPHILS ABSOLUTE 0.02 10/3/uL (0.0-0.16); EOSINOPHILS 0.6 %; EOSINOPHILS ABSOLUTE 0.11 10/3/uL (0.0-0.53); HEMATOCRIT 26.6 % (40.0-51.0); HEMOGLOBIN 8.1 g/dL (13.6-17.8); IMMATURE GRANULOCYTES 0.8 %; IMMATURE GRANULOCYTES ABSOLUTE 0.14 10/3/uL (0.0-0.11); LYMPHOCYTES 5.3 %; LYMPHOCYTES ABSOLUTE 0.92 10/3/uL (0.67-4.30); MEAN CORPUS HGB CONC 30.5 g/dL (32.0-36.0); MEAN CORPUSCULAR HEMOGLOB 24.7 pg (26.0-34.0); MEAN PLATELET VOLUME 10.4 fL (9.2-13.0); MONOCYTES 2.7 %; MONOCYTES ABSOLUTE 0.46 10/3/uL (0.21-1.20); NEUTROPHILS 90.5 %; NEUTROPHILS ABSOLUTE 15.58 10/3/uL (2.02-8.40); PLATELET COUNT 269 10/3/uL (150-400); RBC DISTRIBUTION WIDTH 15.9 % (12.0-16.0); RED CELL COUNT 3.28 10/6/uL (4.7-6.1); WHITE BLOOD CELLS 17.2 10/3/uL (4.5-10.5)
[2016-09-30 06:43] LABS: BUN (BLOOD UREA NITROGEN) 141 MG/DL (6-23); CALCIUM, SERUM 8.6 MG/DL (8.5-10.4); CO2 (CARBON DIOXIDE) 20 MMOL/L (24-34); CREATININE 4.08 MG/DL (0.70-1.30); GFR AFRICAN AMERICAN 16 ML/MIN (>=60); GFR NON AFRICAN AMERICAN 13 ML/MIN (>=60)
[2016-09-30 06:46] LABS: MANUAL DIFF NO %; MEAN CORPUSCULAR VOLUME 81.1 fL (80-100)
[2016-10-01 06:41] LABS: BASOPHILS 0.6 %; BASOPHILS ABSOLUTE 0.06 10/3/uL (0.0-0.16); EOSINOPHILS ABSOLUTE 0.11 10/3/uL (0.0-0.53); HEMATOCRIT 28.6 % (40.0-51.0); HEMOGLOBIN 8.5 g/dL (13.6-17.8); IMMATURE GRANULOCYTES 2.4 %; IMMATURE GRANULOCYTES ABSOLUTE 0.26 10/3/uL (0.0-0.11); LYMPHOCYTES 9.4 %; LYMPHOCYTES ABSOLUTE 1.01 10/3/uL (0.67-4.30); MEAN CORPUS HGB CONC 29.7 g/dL (32.0-36.0); MEAN CORPUSCULAR HEMOGLOB 24.5 pg (26.0-34.0); MEAN CORPUSCULAR VOLUME 82.4 fL (80-100); MEAN PLATELET VOLUME 10.4 fL (9.2-13.0); MONOCYTES ABSOLUTE 0.54 10/3/uL (0.21-1.20); NEUTROPHILS 81.6 %; NEUTROPHILS ABSOLUTE 8.76 10/3/uL (2.02-8.40); PLATELET COUNT 270 10/3/uL (150-400); RBC DISTRIBUTION WIDTH 15.8 % (12.0-16.0); RED CELL COUNT 3.47 10/6/uL (4.7-6.1); WHITE BLOOD CELLS 10.7 10/3/uL (4.5-10.5)
[2016-10-01 06:43] LABS: MANUAL DIFF NO %
[2016-10-01 06:50] LABS: A/G RATIO 0.3 (0.7-1.9); ALBUMIN 1.5 G/DL (3.5-5.0); ALKALINE PHOSPHATASE 92 U/L (45-117); CALCIUM, SERUM 8.8 MG/DL (8.5-10.4); CHLORIDE, SERUM 121 MMOL/L (96-112); GFR AFRICAN AMERICAN 32 ML/MIN (>=60); GFR NON AFRICAN AMERICAN 28 ML/MIN (>=60); GLOBULIN 5.9 G/DL (2.5-4.1); GLUCOSE, SERUM 129 MG/DL (60-99); PHOSPHORUS, SERUM 3.1 MG/DL (2.5-4.5); POTASSIUM, SERUM 3.9 MMOL/L (3.5-5.3); SGOT(AST) 57 U/L (5-40); SGPT(ALT) 70 U/L (5-65); TOTAL BILIRUBIN 0.4 MG/DL (0-1.2); TOTAL PROTEIN 7.4 G/DL (6.0-8.5)
[2016-10-01 06:52] LABS: BUN (BLOOD UREA NITROGEN) 103 MG/DL (6-23); CO2 (CARBON DIOXIDE) 25 MMOL/L (24-34); CREATININE 2.24 MG/DL (0.70-1.30); SODIUM, SERUM 154 MMOL/L (135-148)
[2016-10-02 06:55] LABS: HEMATOCRIT 29.5 % (40.0-51.0); HEMOGLOBIN 8.8 g/dL (13.6-17.8); MEAN CORPUS HGB CONC 29.8 g/dL (32.0-36.0); MEAN CORPUSCULAR HEMOGLOB 24.9 pg (26.0-34.0); MEAN CORPUSCULAR VOLUME 83.3 fL (80-100); MEAN PLATELET VOLUME 9.9 fL (9.2-13.0); PLATELET COUNT 261 10/3/uL (150-400); RBC DISTRIBUTION WIDTH 15.8 % (12.0-16.0); RED CELL COUNT 3.54 10/6/uL (4.7-6.1); WHITE BLOOD CELLS 9.4 10/3/uL (4.5-10.5)
[2016-10-02 06:56] LABS: MANUAL DIFF YES %
[2016-10-02 07:12] LABS: A/G RATIO 0.3 (0.7-1.9); ALBUMIN 1.5 G/DL (3.5-5.0); ALKALINE PHOSPHATASE 90 U/L (45-117); CHLORIDE, SERUM 128 MMOL/L (96-112); CO2 (CARBON DIOXIDE) 24 MMOL/L (24-34); GLOBULIN 5.6 G/DL (2.5-4.1); PHOSPHORUS, SERUM 2.2 MG/DL (2.5-4.5); POTASSIUM, SERUM 3.6 MMOL/L (3.5-5.3); SGOT(AST) 53 U/L (5-40); SGPT(ALT) 66 U/L (5-65); TOTAL BILIRUBIN 0.2 MG/DL (0-1.2); TOTAL PROTEIN 7.1 G/DL (6.0-8.5)
[2016-10-02 07:13] LABS: BUN (BLOOD UREA NITROGEN) 77 MG/DL (6-23); CREATININE 1.65 MG/DL (0.70-1.30); GFR AFRICAN AMERICAN 47 ML/MIN (>=60); GFR NON AFRICAN AMERICAN 40 ML/MIN (>=60); GLUCOSE, SERUM 209 MG/DL (60-99); SODIUM, SERUM 160 MMOL/L (135-148)
[2016-10-02 10:23] LABS: LYMPHOCYTES 15 %; LYMPHOCYTES ABSOLUTE (CALC) 1.41 10/3/uL (0.67-4.30); MONOCYTES 7 %; MONOCYTES ABSOLUTE (CALC) 0.66 10/3/uL (0.21-1.20); NEUTROPHILS ABSOLUTE (CALC) 7.33 10/3/uL (2.02-8.40); PLATELET ESTIMATE ADQ (ADEQUATE); POLYCHROMASIA 1+ (2-5/OIF) (0-1/OIF); SEGMENTED NEUTROPHIL (0) 78 %; TOTAL NUCLEATED CELLS 100
[2016-10-02 14:12] LABS: BUN (BLOOD UREA NITROGEN) 73 MG/DL (6-23); CALCIUM, SERUM 8.9 MG/DL (8.5-10.4); CHLORIDE, SERUM 127 MMOL/L (96-112); CO2 (CARBON DIOXIDE) 25 MMOL/L (24-34); CREATININE 1.77 MG/DL (0.70-1.30); GFR AFRICAN AMERICAN 43 ML/MIN (>=60); GFR NON AFRICAN AMERICAN 37 ML/MIN (>=60); GLUCOSE, SERUM 188 MG/DL (60-99); POTASSIUM, SERUM 3.5 MMOL/L (3.5-5.3); SODIUM, SERUM 160 MMOL/L (135-148)
[2016-10-02] MEDS ORDERED: CORT-DOME 1% CR15 GM (16:16)
== END 2016-10-02 21:05 | disposition hospice, inpatient (51) | DRG 871 ==
LOC: ER 11:11 → 7NO 13:08
PROVIDERS: Hospitalist; Internal Medicine; Nurse Practitioner Family
PROC: 0D20XUZ Change Feeding Device in Upper Intestinal Tract, External Approach (ICD-10-PCS; principal; 2016-10-01)
DX: A41.89 Other specified sepsis (principal); L89.154 Pressure ulcer of sacral region, stage 4; N17.9 Acute kidney failure, unspecified; G93.41 Metabolic encephalopathy; N39.0 Urinary tract infection, site not specified; E11.42 Type 2 diabetes mellitus with diabetic polyneuropathy; R13.10 Dysphagia, unspecified; Z66 Do not resuscitate; I12.9 Hypertensive chronic kidney disease with stage 1 through stage 4 chronic kidney disease, or unspecified chronic kidney disease; M19.90 Unspecified osteoarthritis, unspecified site; E78.00 Pure hypercholesterolemia, unspecified; K21.9 Gastro-esophageal reflux disease without esophagitis; Z93.1 Gastrostomy status; Z87.891 Personal history of nicotine dependence; Z96.659 Presence of unspecified artificial knee joint; Z79.82 Long term (current) use of aspirin
CPT/HCPCS: 49440; 49450; 70450; 71010; 74176; 80048; 80053; 81001; 82140; 82550; 82962; 83036; 83605; 83735; 84100; 84145; 84484; 85025; 85610; 85730; 87040; 87070; 87077; 87086; 87150; 87186; 87205; 93005; 96374; 99285; A9270-GY; C1769; J0692; J2405; J2543; J3010; Q9967